=== PATIENT | female | born 1975 | race Caucasian/White ===

== ENCOUNTER 2020-05-07 10:42 | Emergency (ER) | payer OTHER ==
[~2020-05-07] VITALS: Ht 162.6 cm; Wt 66.3 kg
[2020-05-07] MEDS ORDERED: VALA500T5 PO (10:50)
[2020-05-07] MEDS ORDERED: BOOSTRIX/ADACEL VACCINE (DIPHTH/PERTUSS/ACELL/TETANUS) 0.5ML SYR IM ONE (11:05)
[2020-05-07] MEDS ORDERED: LIDOCAINE 2% MDV 20ML VIAL SC ONE (11:05)
--- NOTE | 2020-05-07 11:38 | REP ---
INDICATION: fall, pain over middle extending left. COMPARISON: None. TECHNIQUE: There are four views. FINDINGS: There is no mandibular fracture or dislocation. The visualized paranasal sinuses are unremarkable. IMPRESSION: No evidence of mandibular fracture or dislocation. If symptoms persist or worsen consider CT follow-up. <Electronically signed by Mg Sow > 05/07/20 1997
[2020-05-07 12:10] VITALS: BP 134/74
== END 2020-05-07 12:11 | disposition home or self-care (01) ==
LOC: M ED 10:42
DX: S01.81XA Laceration without foreign body of other part of head, initial encounter (principal); W01.198A Fall on same level from slipping, tripping and stumbling with subsequent striking against other object, initial encounter; Y92.89 Other specified places as the place of occurrence of the external cause; Y93.9 Activity, unspecified; Y99.9 Unspecified external cause status